=== PATIENT | male | born 1970 | race Asian ===

== ENCOUNTER 2020-11-18 08:31 | Outpatient (REF) | payer OTHER, SELFPAY ==
--- NOTE | ~2020-11-18 | XR_ITS ---
EXAMINATION: XR CHEST CLINICAL INFORMATION: Left rib pain COMPARISON: None TECHNIQUE: 2 views of the chest were obtained. FINDINGS: No significant abnormality is noted involving the heart, lungs, mediastinum, bony thorax or soft tissues. XR/XR chest 2V IMPRESSION: Unremarkable examination.
[2020-11-18 09:10] LABS: MANUAL DIFF FLAG NO
[2020-11-18 09:28] LABS: Basophils Percent Auto 0.2 % (0-2); Eosinophils Absolute Auto 0.3 X10*3/uL (0.0-0.4); Eosinophils Percent Auto 4.5 % (0-4); Hematocrit 47.1 % (42-52); Hemoglobin 15.5 g/dl (14.0-18.0); Imm Gran Abs Auto 0.01 X10*3/uL (0.00-0.03); Imm Gran Pct Auto 0.2 % (0.0-0.4); Lymphocytes Absolute Auto 2.2 X10*3/uL (1.2-4.9); Lymphocytes Percent Auto 39.5 % (20-40); Mean Corpuscular HGB Conc 32.9 g/dl (31.0-36.0); Mean Corpuscular Hemoglobin 29.8 pg (27.0-33.0); Mean Corpuscular Volume 90.4 fL (80-98); Mean Platelet Volume 9.7 fL (9.4-12.4); Monocytes Absolute Auto 0.5 X10*3/uL (0.1-1.2); Monocytes Percent Auto 8.3 % (2-11); Neutrophils Absolute Auto 2.6 X10*3/uL (2.0-8.3); Neutrophils Percent Auto 47.3 % (45-73); Platelet Count 213 X10*3/uL (160-400); Red Blood Count 5.21 X10*6/uL (4.60-5.80); White Blood Count 5.6 X10*3/uL (4.8-10.8)
[2020-11-18 09:50] LABS: Glucose Urine UA NEG (NEG); Leukocyte Esterase Urine NEG (NEG); Nitrite Urine NEG (NEG); PH 5.5 (5.0-8.0); Specific Gravity - Urine >= 1.030 (1.005-1.025); Urine Blood 1+ (NEG); Urine Ketones NEG (NEG); Urine Protein NEG (NEG-TRACE)
[2020-11-18 09:59] LABS: Appearance Urine CLEAR; Color Urine YELLOW
[2020-11-18 10:18] LABS: Alanine Aminotransferase 46 U/L (0-40); Albumin Level 4.4 g/dL (3.5-5.0); Alkaline Phosphatase 62 U/L (39-117); Anion Gap 11 (12-20); Aspartate Amino Transferase 37 U/L (5-37); Bilirubin Total 0.9 mg/dL (0.0-1.0); Blood Urea Nitrogen 15 mg/dL (9-16); C Reactive Protein 0.15 mg/dL (< or = 0.50); Calcium 8.9 mg/dL (8.4-10.2); Carbon Dioxide 28 mmol/L (22-29); Chloride 107 mmol/L (96-108); Cholesterol 220 mg/dL; Estimated Glomerular Filt Rate > 60; Glucose Fasting 122 mg/dL (60-99); HDL Cholesterol 47 mg/dL; LDL Cholesterol Calculated 157 mg/dl; Potassium 4.1 mmol/L (3.3-5.1); Sodium 142 mmol/L (135-145); Total Protein 7.3 g/dL (6.5-8.0); Triglycerides 81 mg/dL
[2020-11-18 11:57] LABS: Mucus Urine 1+ /LPF; RBC Urine 0-2 /HPF (0); Squamous Epithelial Cell Urine TRACE /LPF; WBC Urine 0-2 /HPF (0-4)
[2020-11-19 12:28] LABS: Transglutaminase Ab IgG 4 U/mL
[2020-11-19 14:27] LABS: Gliadin Deamidated IgA Ab 6 Units; Gliadin Deamidated IgG Ab 1 Units
== END 2020-11-18 08:32 | disposition home or self-care (01) ==
LOC: HO.LAB 08:31
PROVIDERS: PCP Internal Medicine; Visit Provider Internal Medicine
DX: Z00.00 Encounter for general adult medical examination without abnormal findings (principal); R07.81 Pleurodynia; R19.7 Diarrhea, unspecified
CPT/HCPCS: 36415; 71046; 80053; 80061; 81001; 83516; 85025; 86140

== ENCOUNTER 2021-01-19 08:51 | Day surgery (SDC) | payer OTHER, SELFPAY ==
--- NOTE | 2021-01-18 12:40 | HO.ANESPROP2 ---
Documented by User: Juana Young 01/18/21 12:42 HPI - Anesthesia Eval Consult details Narrative: 50yo M for Colonoscopy [facility] Past Medical History Medical History Elevated cholesterol Social History Social History Smoking Status: Never smoker Use of substances other than those prescribed or required for medical reasons: No Have you been hit, kicked, punched, or otherwise hurt by someone within the past year? If so, by whom?: No Advance Directives: No Advance Directives Information Provided: Yes Meds Allergies Allergy/AdvReac Type Severity Reaction Status Date / Time No Known Allergies Allergy Verified 01/18/21 12:42 Exam Exam Date and Time: January 18, 2021 1240 Pertinent Lab Results Pertinent Lab Results: Laboratory Tests 11/18/20 11/18/20 08:50 08:50 WBC 5.6 Hgb 15.5 Hct 47.1 Plt Count 213 Sodium 142 Potassium 4.1 Chloride 107 Carbon Dioxide 28 BUN 15 Creatinine 0.90 Assessment and Plan Assessment Anesthesia Assessment: Chart Reviewed Documented by User: James Hutchinson 01/19/21 10:58 [facility] Past Medical History Medical History Elevated cholesterol Social History Social History Smoking Status: Never smoker Use of substances other than those prescribed or required for medical reasons: No Have you been hit, kicked, punched, or otherwise hurt by someone within the past year? If so, by whom?: No Advance Directives: No Advance Directives Information Provided: Yes Meds Allergies Allergy/AdvReac Type Severity Reaction Status Date / Time No Known Allergies Allergy Verified 01/18/21 12:42 Exam Airway Mallampati Class: II TM Dist: >3cm Neck ROM: Full Loose/Missing/Broken Teeth: No Heart: rrr+s1s2 Lungs: cta b/l Assessment and Plan Assessment Anesthesia Assessment: Anesthesia Plan Discussed, PAT Visit and Chart Reviewed Final Anesthetic Review NPO: Yes ASA Class: II Final Preanesthetic Review: No Changes in Pt Med Stat, Meds/Allgs Chart Reviewed, Consent Obtained/Reviewed and Anes Risks/Benef Reviewed Patient Risk: Low Procedure Risk: Low Assessment/Block/Sedation in SS: Assess/Block/Sedation-SS Anesthetic Plan Anesthetic Plan: MAC: and Agree w/ Assess. and Plan Disposition: Standard PACU
[2021-01-19 10:13] VITALS: BP 131/81; PULSE 62; RESP 18; TEMP 36.4; O2SAT 98; BMI 29.0
[2021-01-19] MEDS: Lactated Ringers 1,000 ML 100 ML IVCONT (10:37)
--- NOTE | 2021-01-19 11:45 | MHC.SHP ---
Pre-Procedural Eval Section A The patient is an INPATIENT: No Changes since office visit: No Cold of Flu in the past 2 weeks, No New Medical Problems, No Changes in Medication and No Patient answered all questions The History & Physical has been completed within 30 days and I have reviewed it.: Yes Section B Chief Complaint: screening Allergies: Allergies Allergy/AdvReac Type Severity Reaction Status Date / Time No Known Allergies Allergy Verified 01/18/21 12:42 Plan I have reviewed the history and physical and performed a pertinent physical examination on my patient. No changes have occurred unless specified.
[2021-01-19 13:10] VITALS: BP 99/62; PULSE 62; RESP 16; TEMP 36.9; O2SAT 98
--- NOTE | 2021-01-19 13:12 | PM.OP ---
Brief Operative Note Date of Service: 01/19/21 Pre-op diagnosis: screening Post-op diagnosis: same (colon polyps) Procedure: colonoscopy Surgeon: Tommie Gupta Anesthesia: MAC Estimated blood loss (mL): 5 Pathology: other (multiple polyps, sigmoid biopsies) Condition: stable Disposition: PACU
[2021-01-19 13:25] VITALS: BP 94/57; PULSE 57; RESP 16; O2SAT 96
[2021-01-19 13:40] VITALS: BP 93/53; PULSE 60; RESP 16; O2SAT 95
[2021-01-19 13:48] VITALS: BP 109/76
--- NOTE | 2021-01-19 14:07 | OP_ITS ---
SURGEON: Tommie Gupta MD INDICATIONS: Change in bowel habits and colon cancer screening. PREOPERATIVE DIAGNOSIS: POSTOPERATIVE DIAGNOSIS: PROCEDURE PERFORMED: Colonoscopy to the terminal ileum with snare polypectomy, biopsy and cauterization of colon polyps. ESTIMATED BLOOD LOSS: COMPLICATIONS: ANESTHESIA: ASSISTANTS: SPECIMENS: MEDICATIONS: Monitored anesthesia care. DESCRIPTION OF PROCEDURE: History and physical performed. The risks and benefits of the procedure were explained to the patient. Informed consent was obtained. The patient was placed in the left lateral decubitus position. A digital rectal exam was performed and was found to be normal. The Olympus pediatric video colonoscope was introduced into the rectum and advanced to the cecum. The cecum was identified by transillumination, palpation, and identification of ileocecal valve. Examination was performed and the scope was removed. He tolerated the procedure well and was taken to recovery area in stable condition. FINDINGS: The terminal ileum was normal. There were multiple colonic polyps present, mainly concentrated in the cecum, right colon and transverse colon. These were so many that they could not be counted. The polyps were removed with a combination of snare polypectomy, biopsy and cautery. The largest polyps measured approximately 10 to 20 mm and were removed with a Tejada Net, which required multiple re-insertions and removals of the colonoscope. This made the procedure extended and difficult. In addition to the polyps grouped by their location in the cecum, right colon, and transverse colon, there was a polyp at 30 cm, which was sent separately and sigmoid biopsies were obtained randomly because of the patient's change in bowel habits. Retroflexed examination showed small internal hemorrhoids. The quality of the prep was good. IMPRESSION: 1. Multiple colonic polyps as above. 2. Extended/difficult procedure. RECOMMENDATIONS: 1. Follow up the biopsy results. 2. Consider repeat colonoscopy in 6 to 12 months as some of the polyps were large to ensure complete resection. MD ROSAMARIA Monique/BERNARDOL / [id number]
== END 2021-01-19 14:20 | disposition home or self-care (01) ==
PROVIDERS: PCP Internal Medicine; Visit Provider Internal Medicine Gastroenterology
PROC: 0DJD8ZZ Inspection of Lower Intestinal Tract, Via Natural or Artificial Opening Endoscopic (ICD-10-PCS; CPT 45378; principal; 2021-01-19 11:00)
DX: Z12.11 Encounter for screening for malignant neoplasm of colon (principal); R19.4 Change in bowel habit; D12.0 Benign neoplasm of cecum; D12.2 Benign neoplasm of ascending colon; D12.3 Benign neoplasm of transverse colon; D12.5 Benign neoplasm of sigmoid colon; K64.8 Other hemorrhoids
CPT/HCPCS: 45385; 45380; 45384; 88305

== ENCOUNTER 2021-02-19 14:07 | Outpatient (REF) | payer OTHER, SELFPAY ==
[2021-02-19 14:44] LABS: Estimated Average Glucose 160 mg/dL; Hemoglobin A1c % 7.2 %
[2021-02-19 15:04] LABS: Anion Gap 11 (12-20); Blood Urea Nitrogen 17 mg/dL (9-16); Calcium 9.3 mg/dL (8.4-10.2); Carbon Dioxide 28 mmol/L (22-29); Chloride 103 mmol/L (96-108); Estimated Glomerular Filt Rate > 60; Glucose Random 96 mg/dL (60-115); Potassium 4.1 mmol/L (3.3-5.1); Sodium 138 mmol/L (135-145)
== END 2021-02-19 14:08 | disposition home or self-care (01) ==
LOC: HO.LAB 14:07
PROVIDERS: PCP Internal Medicine; Visit Provider Internal Medicine
DX: R73.03 Prediabetes (principal); E78.00 Pure hypercholesterolemia, unspecified
CPT/HCPCS: 36415; 80048; 83036

== ENCOUNTER → 2021-06-28 13:25 | Outpatient (REF) | payer OTHER, SELFPAY | LOC: HO.SL 13:25 | PROVIDERS: PCP Internal Medicine; Visit Provider Internal Medicine | DX: R06.83 Snoring (principal) | CPT/HCPCS: 95806 ==

== ENCOUNTER 2021-07-16 07:35 | Day surgery (SDC) | payer OTHER, SELFPAY ==
--- NOTE | 2021-07-15 12:43 | HO.ANESPROP2 ---
Documented by User: Juana Young NP 07/15/21 12:44 HPI - Anesthesia Eval Consult details Narrative: 50yo M for Colonoscopy [facility] Past Medical History Medical History Elevated cholesterol Surgical History Surgical History (Updated 07/09/21 @ 14:35 by Talia Cochran, RN) Hx of colonoscopy Social History Social History Patient Tobacco Use Status: Never used Tobacco Use of substances other than those prescribed or required for medical reasons: No Are you DNR?: No Advance Directives: No Advance Directives Information Provided: Yes Recently lost weight without trying: No Nutrition Risks: No Nutritional Risk Meds Allergies Allergy/AdvReac Type Severity Reaction Status Date / Time No Known Allergies Allergy Verified 01/18/21 12:42 Home Medications Medication Instructions Recorded Confirmed Last Taken Type No Known Home Meds 07/09/21 07/09/21 Unknown History Exam Exam Date and Time: July 15, 2021 124 Pertinent Lab Results Pertinent Lab Results: Laboratory Tests 11/18/20 02/19/21 08:50 14:27 WBC 5.6 Hgb 15.5 Hct 47.1 Plt Count 213 Sodium 138 Potassium 4.1 Chloride 103 Carbon Dioxide 28 BUN 17 H Creatinine 0.84 Assessment and Plan Assessment Anesthesia Assessment: Chart Reviewed Documented by User: James Hutchinson MD 07/16/21 07:49 [facility] Past Medical History Medical History Elevated cholesterol Family History Family history of problems with anesthesia: No Surgical History Surgical History (Updated 07/09/21 @ 14:35 by Talia Cochran, RN) Hx of colonoscopy History of Problems with Anesthesia: No Social History Social History Patient Tobacco Use Status: Never used Tobacco Use of substances other than those prescribed or required for medical reasons: No Are you DNR?: No Advance Directives: No Advance Directives Information Provided: Yes Recently lost weight without trying: No Nutrition Risks: No Nutritional Risk Meds Allergies Allergy/AdvReac Type Severity Reaction Status Date / Time No Known Allergies Allergy Verified 01/18/21 12:42 Home Medications Medication Instructions Recorded Confirmed Last Taken Type No Known Home Meds 07/09/21 07/09/21 Unknown History Exam Airway Mallampati Class: II TM Dist: >3cm Neck ROM: Full Loose/Missing/Broken Teeth: No Heart: rrr+s1s2 Lungs: cta b/l Assessment and Plan Assessment Anesthesia Assessment: Anesthesia Plan Discussed Final Anesthetic Review Family History of Problems with Anesthesia: No History of Problems with Anesthesia: No NPO: Yes ASA Class: II Final Preanesthetic Review: No Changes in Pt Med Stat, Meds/Allgs Chart Reviewed, Consent Obtained/Reviewed and Anes Risks/Benef Reviewed Patient Risk: Intermediate Procedure Risk: Low Assessment/Block/Sedation in SS: Assess/Block/Sedation-SS Anesthetic Plan Anesthetic Plan: MAC: and Agree w/ Assess. and Plan Disposition: Standard PACU
[2021-07-16 07:45] VITALS: BMI 32.1
[2021-07-16 07:57] VITALS: BP 128/75; PULSE 70; RESP 16; TEMP 36.4; O2SAT 96
[2021-07-16] MEDS: Lactated Ringers 1,000 ML 100 ML IVCONT (08:08)
--- NOTE | 2021-07-16 08:45 | MHC.SHP ---
Pre-Procedural Eval Section A Date of Service: 07/16/21 Section B Chief Complaint: hx of colonic polyps Details of Present Illness: see H&P no changes Relevant Family History (Specify if Yes): No Relevant Social History: None Present Medications: see Short Stay Collaborative assessment Medical History: No relevant PMH History of Previous Operations: No relevant previous surgery Allergies: Allergies Allergy/AdvReac Type Severity Reaction Status Date / Time No Known Allergies Allergy Verified 01/18/21 12:42 Review of Systems Sugical H&P ROS: Negative: Constitution, Cardiovascular, Respiratory, Neurological, Psychiatric, Hem-Onc, Allergic/Immunologic, Gastrointestinal, Genitourinary, Musculoskeletal, Integumentary, Endocrine and Eyes/Ears/Nose/Throat Exam Surgical H&P Exam: Normal: HEENT, Normal: Heart, Normal: Lungs, Normal: Extremities, Normal: Abdomen, Normal: Skin and Normal: Neurological Plan I have reviewed the history and physical and performed a pertinent physical examination on my patient. No changes have occurred unless specified.
[2021-07-16 09:28] VITALS: BP 97/73; PULSE 96; RESP 16; TEMP 36.1; O2SAT 96
--- NOTE | 2021-07-16 09:32 | PM.OP ---
Brief Operative Note Date of Service: 07/16/21 Pre-op diagnosis: screening Post-op diagnosis: same (colon polyps) Procedure: colonosocpy Surgeon: Tommie Gupta Anesthesia: MAC Was an Oral Therapist used for this Procedure?: No Estimated blood loss (mL): 5 Pathology: other (multiple polyps) Condition: stable Disposition: PACU
[2021-07-16 09:45] VITALS: BP 97/61; PULSE 69; RESP 16; O2SAT 95
--- NOTE | 2021-07-16 09:46 | OP_ITS ---
SURGEON: Tommie Gupta MD INDICATIONS: Colon cancer screening. PREOPERATIVE DIAGNOSIS: POSTOPERATIVE DIAGNOSIS: PROCEDURE PERFORMED: Colonoscopy to the terminal ileum with snare polypectomy, biopsy and cauterization of colon polyps. ESTIMATED BLOOD LOSS: COMPLICATIONS: ANESTHESIA: ASSISTANTS: SPECIMENS: MEDICATIONS: Monitored anesthesia care. DESCRIPTION OF PROCEDURE: History and physical performed. The risks and benefits of the procedure were explained to the patient. Informed consent was obtained. The patient was placed in the left lateral decubitus position. A digital rectal exam was performed and was found to be normal. The Olympus pediatric video colonoscope was introduced into the rectum and advanced to the cecum without difficulty. The cecum was identified by transillumination, palpation, and identification of ileocecal valve. Examination was performed and the scope was removed. He tolerated the procedure well and was taken to recovery area in stable condition. FINDINGS: The terminal ileum was normal. The visualized colonic mucosa was within normal limits without evidence of masses or ulcers. The quality of the prep was good. Multiple colonic polyps were identified and removed with a snare. Biopsy forceps and one was cauterized. Two polyps were located at 70 cm. Two polyps were located at 60 cm, one was cauterized and the other was snared. At 50 cm, were 3 polyps that were snared and the 4th polyp that was removed with biopsy forceps. Retroflexed examination was normal. IMPRESSION: Colon polyps. RECOMMENDATION: Follow up the biopsy results. MD ROSAMARIA Monique/KWASI / [id number]
[2021-07-16 10:00] VITALS: BP 109/78; PULSE 63; RESP 16; TEMP 36.1; O2SAT 96
== END 2021-07-16 12:00 | disposition home or self-care (01) ==
PROVIDERS: PCP Internal Medicine; Visit Provider Internal Medicine Gastroenterology
PROC: 0DJD8ZZ Inspection of Lower Intestinal Tract, Via Natural or Artificial Opening Endoscopic (ICD-10-PCS; CPT 45378; principal; 2021-07-16 08:40)
DX: D12.4 Benign neoplasm of descending colon (principal); D12.5 Benign neoplasm of sigmoid colon; E78.00 Pure hypercholesterolemia, unspecified; Z86.010 Personal history of colon polyps
CPT/HCPCS: 45385; 45384; 45380; 88305

== ENCOUNTER 2023-12-30 10:39 | Outpatient (REF) | payer OTHER, SELFPAY ==
[2023-12-30 10:50] LABS: MANUAL DIFF FLAG NO
[2023-12-30 11:24] LABS: Basophils Percent Auto 0.3 % (0-2); Eosinophils Absolute Auto 0.2 X10*3/uL (0.0-0.4); Eosinophils Percent Auto 3.2 % (0-4); Hematocrit 48.4 % (42.0-52.0); Hemoglobin 16.4 g/dl (14.0-18.0); Imm Gran Abs Auto 0.03 X10*3/uL (0.00-0.03); Imm Gran Pct Auto 0.4 % (0.0-0.4); Lymphocytes Absolute Auto 2.2 X10*3/uL (1.2-4.9); Lymphocytes Percent Auto 31.2 % (20-40); Mean Corpuscular HGB Conc 33.9 g/dl (31.0-36.0); Mean Corpuscular Volume 88.5 fL (80.0-98.0); Mean Platelet Volume 9.5 fL (9.4-12.4); Monocytes Absolute Auto 0.6 X10*3/uL (0.1-1.2); Monocytes Percent Auto 8.2 % (2-11); Neutrophils Percent Auto 56.7 % (45-73); Platelet Count 209 X10*3/uL (160-400); Red Blood Count 5.47 X10*6/uL (4.60-5.80); Red Cell Distribution Width 12.6 % (11.0-16.0); White Blood Count 7.1 X10*3/uL (4.8-10.8)
[2023-12-30 11:33] LABS: Estimated Average Glucose 237 mg/dL; Hemoglobin A1c % 9.9 % (<6.0)
[2023-12-30 11:50] LABS: Alanine Aminotransferase 45 U/L (0-40); Albumin Level 4.5 g/dL (3.5-5.0); Alkaline Phosphatase 63 U/L (39-117); Anion Gap 14 (12-20); Aspartate Amino Transferase 30 U/L (5-37); Bilirubin Total 0.6 mg/dL (0.0-1.0); Blood Urea Nitrogen 12 mg/dL (9-16); Calcium 9.9 mg/dL (8.4-10.2); Carbon Dioxide 29 mmol/L (22-29); Chloride 103 mmol/L (96-108); Cholesterol 235 mg/dL (<200); Estimated Glomerular Filt Rate > 60; Glucose Fasting 182 mg/dL (60-99); HDL Cholesterol 55 mg/dL (>40); LDL Cholesterol Calculated 157 mg/dL (<100); Potassium 3.8 mmol/L (3.3-5.1); Sodium 142 mmol/L (135-145); Total Protein 8.2 g/dL (6.5-8.0); Triglycerides 115 mg/dL (<150)
== END 2023-12-30 10:40 | disposition home or self-care (01) ==
LOC: HO.LAB 10:39
PROVIDERS: PCP Internal Medicine; Visit Provider Internal Medicine
DX: E78.00 Pure hypercholesterolemia, unspecified (principal); R73.03 Prediabetes; N40.0 Benign prostatic hyperplasia without lower urinary tract symptoms
CPT/HCPCS: 36415; 80053; 80061; 83036; 85025

== ENCOUNTER 2024-04-19 12:02 | Outpatient (REF) | payer OTHER, SELFPAY ==
[2024-04-19 13:58] LABS: Anion Gap 16 (12-20); Blood Urea Nitrogen 15 mg/dL (9-16); Calcium 9.2 mg/dL (8.4-10.2); Carbon Dioxide 26 mmol/L (22-29); Chloride 103 mmol/L (96-108); Estimated Glomerular Filt Rate > 60; Glucose Random 105 mg/dL (60-115); Sodium 141 mmol/L (135-145)
[2024-04-19 14:19] LABS: Estimated Average Glucose 174 mg/dL; Hemoglobin A1c % 7.7 % (<6.0)
== END 2024-04-19 12:03 | disposition home or self-care (01) ==
LOC: HO.10HDL 12:02
PROVIDERS: Visit Provider Internal Medicine
DX: E11.9 Type 2 diabetes mellitus without complications (principal); E78.00 Pure hypercholesterolemia, unspecified
CPT/HCPCS: 36415; 80048; 83036

== ENCOUNTER 2024-06-20 12:22 | Outpatient (REF) | payer OTHER, SELFPAY ==
[2024-06-20 13:14] LABS: MANUAL DIFF FLAG NO
[2024-06-20 13:46] LABS: Estimated Average Glucose 146 mg/dL; Hemoglobin A1c % 6.7 % (<6.0)
[2024-06-20 13:59] LABS: Alanine Aminotransferase 64 U/L (0-40); Albumin Level 4.4 g/dL (3.5-5.0); Alkaline Phosphatase 51 U/L (39-117); Anion Gap 13 (12-20); Aspartate Amino Transferase 48 U/L (5-37); Bilirubin Total 0.4 mg/dL (0.0-1.0); Blood Urea Nitrogen 11 mg/dL (9-16); C Reactive Protein 0.19 mg/dL (< or = 0.50); Carbon Dioxide 27 mmol/L (22-29); Chloride 105 mmol/L (96-108); Estimated Glomerular Filt Rate > 60; Glucose Random 73 mg/dL (60-115); Lactate Dehydrogenase 215 U/L (118-273); Sodium 141 mmol/L (135-145); Total Protein 8.2 g/dL (6.5-8.0)
[2024-06-20 14:00] LABS: Basophils Percent Auto 0.1 % (0-2); Eosinophils Absolute Auto 0.3 X10*3/uL (0.0-0.4); Eosinophils Percent Auto 3.6 % (0-4); Hematocrit 47.7 % (42.0-52.0); Hemoglobin 16.3 g/dl (14.0-18.0); Imm Gran Abs Auto 0.04 X10*3/uL (0.00-0.03); Imm Gran Pct Auto 0.5 % (0.0-0.4); Lymphocytes Absolute Auto 3.2 X10*3/uL (1.2-4.9); Lymphocytes Percent Auto 42.8 % (20-40); Mean Corpuscular HGB Conc 34.2 g/dl (31.0-36.0); Mean Corpuscular Hemoglobin 30.2 pg (27.0-33.0); Mean Corpuscular Volume 88.5 fL (80.0-98.0); Mean Platelet Volume 8.7 fL (9.4-12.4); Monocytes Absolute Auto 0.5 X10*3/uL (0.1-1.2); Monocytes Percent Auto 7.2 % (2-11); Neutrophils Absolute Auto 3.4 x10*3/uL (2.0-8.3); Neutrophils Percent Auto 45.8 % (45-73); Platelet Count 312 X10*3/uL (160-400); Red Blood Count 5.39 X10*6/uL (4.60-5.80); Red Cell Distribution Width 13.2 % (11.0-16.0); White Blood Count 7.5 X10*3/uL (4.8-10.8)
== END 2024-06-20 12:23 | disposition home or self-care (01) ==
LOC: HO.10HDL 12:22
PROVIDERS: Visit Provider Internal Medicine
DX: E11.9 Type 2 diabetes mellitus without complications (principal)
CPT/HCPCS: 36415; 80053; 82550; 83036; 83615; 85025; 86140

== ENCOUNTER 2025-04-15 09:45 | Outpatient (AMB) | payer OTHER, SELFPAY ==
--- NOTE | 2025-04-15 09:54 | MHC.PC.OV ---
Vital Signs 04/15/25 09:57 Weight 84.822 kg BP 118/78 Blood Pressure Location Lt brachial Position Sitting Respiration 14 Pulse 62 Pulse Source Pulse Oximeter Temp 97.9 F Pulse Oximetry (%) 97 Oxygen Delivery Method Room Air Intake Visit Reasons: routine [employer] Supervisor Required: No Accompanied by: Self / Same As Patient Allergies No Known Allergies Allergy (Verified 04/15/25 09:55) HPI HPI Comments History of Present Illness Details 54-year-old male with history of type 2 diabetes, hyperlipidemia presents to the office today for management of chronic conditions and to establish care. Type 2 diabetes-last hemoglobin A1c 6.7%. Compliant with metformin and glipizide. Eye exam UTD. Not checking sugars. Hyperlipidemia-not on statin. Last LDL 157 Concerns: Pain in all fingers every morning, difficult close fist. Reports clicking when trying to close fist. Improves as day goes on. 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 Pain with movement. Health maintenance: Last colonoscopy 2020, 5 year follow-up advised due to tubular adenoma. Dr. Gupta Due for screening PSA ROS: General: No fevers, malaise, unintentional weight loss HEENT: No blurred vision, diplopia. No sore throat, nasal congestion, rhinorrhea, sinus pain, ear pain Cardiovascular: No chest pain, palpitations, or leg edema Respiratory: No shortness of breath, wheezing, cough GI: No abdominal pain, nausea, vomiting, diarrhea, constipation, melena, hematochezia : No dysuria, hematuria, increased urinary frequency, decreased urinary output MSK: No myalgia, back pain Neuro: No headaches, weakness, paresthesias Skin: No rashes or lesions EXAM: Constitutional - Awake and Alert, No apparent distress Eyes - PERRL Cardiovascular - S1S2, RRR, No edema Respiratory - Normal lung expansion, Normal respiratory effort, No respiratory distress, CTA bilaterally Extremities - no calf tenderness bilaterally, no swelling Skin - Warm/Dry Neurological - Alert & oriented x3 Psychological - Appropriate affect PFSH Medical History (Updated 04/15/25 @ 10:07 by GREGG Wade) Nephrolithiasis HLD (hyperlipidemia) Type 2 diabetes mellitus Elevated cholesterol Surgical History (Updated 04/14/25 @ 15:43 by Francine Solares) Hx of colonoscopy (~07/16/21) Social History Patient Tobacco Use Status: Never used Tobacco Questionnaire PHQ-9 Over the last 2 weeks, how often have you been bothered by any of the following problems? 1. Little interest or pleasure in doing things: nearly every day 2. Feeling down, depressed, or hopeless: not at all 3. Trouble falling or staying asleep, or sleeping too much: not at all 4. Feeling tired or having little energy: several days 5. Poor appetite or overeating: not at all 6. Feeling bad about yourself - or that you are a failure or have let yourself or your family down: nearly every day 7. Trouble concentrating on things, such as reading the newspaper or watching television: nearly every day 8. Moving or speaking so slowly that other people could have noticed. Or the opposite - being so fidgety or restless that you have been moving around a lot more than usual: not at all 9. Thoughts that you would be better off or of hurting yourself in some way: not at all Total score: 10 Depression Screening Interpretation: Positive Depression Screening Done: Yes 77683 - PHQ-9 Billing: Yes Source: Developed by Drs. Juan Nagy, Lizette Bain, Jose Grady and colleagues, with an educational acosta from [employer] Thrive Questionnaire Date Thrive assessed: 04/15/25 I am a: Patient What is your living situation today?: I have a steady place to live Within the past 12 months, did the food you bought not last and you didn't have the money to get more?: Never true Within the past 12 months, did you worry whether your food would run out before you got money to buy more?: Never true Do you have trouble paying for medicines?: No Do you have trouble getting transportation to medical appointments?: No Do you have trouble paying your heating and electricity bill?: No Do you have trouble taking care of your child, family member or friend?: No Do you have trouble with day-to-day activities such as bathing, preparing meals, shopping, managing finances, etc.?: No Are you currently unemployed and looking for a job?: No Are you interested in more education?: No THRIVE Score: 0 MAURI-7 AMB Questionnaire MAURI-7 Date MAURI - 7 assessed: 04/15/25 Feeling nervous, anxious, or on edge: 0 = Not at all Not being able to stop or control worryin = Not at all Worrying too much about different things: 1 = Several days Trouble relaxin = Not at all Being so restless that it is hard to sit still: 0 = Not at all Becoming easily annoyed or irritable: 0 = Not at all Feeling afraid as if something awful might happen: 1 = Several days Total MAURI-7 score (0-4 normal; 5-9 mild; 10-14 moderate; 15-21 severe): 2 Source: Developed by Drs. Juan Nagy, Lizette Bain, Jose Grady and colleagues, with an educational acosta from [employer] MAURI-7 Assessment Billing MAURI-7 Assessment Tool: MAURI-7 Assessment 77432 Physical exam (Primary Care) Vital Signs: Last Vital Signs Temp 97.9 F 04/15/25 09:57 Pulse 62 04/15/25 09:57 Resp 14 04/15/25 09:57 BP 118/78 04/15/25 09:57 Pulse Ox 97 04/15/25 09:57 Oxygen Delivery Method Room Air 04/15/25 09:57 Tobacco/Smoking Status: Tobacco use Status Patient Tobacco Use Status Never used Tobacco 04/15/25 10:01 Depression Screening Interpretation: Positive Coding Level of Care Code New Pt Level 4 (32786) Complex EM visit Add On G2211 Diagnoses Type 2 diabetes mellitus E11.9 HLD (hyperlipidemia) E78.5 Additional Codes PHQ-9 - 39220 - PHQ-9 Billing: Yes ([id number]) MAURI-7 Assessment Billing - MAURI-7 Assessment Tool: MAURI-7 Assessment [id number] ([id number]) Assessment & Plan Assessment & Plan (1) Type 2 diabetes mellitus: Code(s): E11.9 - Type 2 diabetes mellitus without complications Category: Medical Plan: Hemoglobin A1c ordered and microalbuminuria screen. Continue glipizide 5 mg twice daily and metformin 500 mg twice daily. Continue diabetic diet as well as annual eye exams and foot exams. (2) HLD (hyperlipidemia): Code(s): E78.5 - Hyperlipidemia, unspecified Category: Medical Plan: Lipid panel ordered. Does discussed the importance of cholesterol management with history of type 2 diabetes. Will calculate ASCVD risk score and recommend statin as indicated Plan Follow-up in the office in 4 months. Labs were completed following visit today. PHQ-9 score positive with score of 10 and mauri 7 score negative. Not interested in therapy at this time Orders: Orders Basic Metabolic Panel Today E11.9 - Type 2 diabetes mellitus without complications, E78.5 - Hyperlipidemia, unspecified Lipid Panel Today E11.9 - Type 2 diabetes mellitus without complications, E78.5 - Hyperlipidemia, unspecified Liver Panel Today E11.9 - Type 2 diabetes mellitus without complications, E78.5 - Hyperlipidemia, unspecified Hemoglobin A1c Today E11.9 - Type 2 diabetes mellitus without complications, E78.5 - Hyperlipidemia, unspecified Prostate Specific Antigen Today E11.9 - Type 2 diabetes mellitus without complications, E78.5 - Hyperlipidemia, unspecified
[2025-04-15 09:57] VITALS: BP 118/78; PULSE 62; RESP 14; TEMP 36.6; O2SAT 97
--- OUTSIDE RECORDS SUMMARY | 2025-04-15 10:21 | XMS_ITS | Patient Health Record ---
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 the day before the procedure for 1 day 01/13/2021 Active Immunizations Vaccine Route Administration Date Status Comme nts Influenza Unknown 01/13/2021 Refused Social History Tobacco Use: Social History Observation Description Date Details (start date - stop date) Never Smoker NA - NA Tobacco Use/Smoking Question Answer Notes Patient is a nonsmoker Alcohol Screen Question Answer Notes Did you have a drink contain ing alcohol in the past year? Yes How often did you have a dri nk containing alcohol in the past year? Monthly or less (1 point) How often did you have 6 or more drinks on one occasion in the past year? 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
== END 2025-04-15 10:24 | disposition home or self-care (01) ==
LOC: HO.HMCHD 09:46
PROVIDERS: PCP Physician Assistant; Visit Provider Physician Assistant
DX: E11.9 Type 2 diabetes mellitus without complications (principal); E78.5 Hyperlipidemia, unspecified

== ENCOUNTER → 2025-04-15 09:45 | Outpatient (BNVA) | payer OTHER, SELFPAY | PROVIDERS: PCP Internal Medicine; Visit Provider Physician Assistant | DX: Z76.89 Persons encountering health services in other specified circumstances (principal); E11.9 Type 2 diabetes mellitus without complications; E78.5 Hyperlipidemia, unspecified; Z79.84 Long term (current) use of oral hypoglycemic drugs; Z13.31 Encounter for screening for depression; Z13.30 Encounter for screening examination for mental health and behavioral disorders, unspecified | CPT/HCPCS: 96127 ==

== ENCOUNTER 2025-04-15 10:29 | Outpatient (REF) | payer OTHER, SELFPAY ==
[2025-04-15 14:17] LABS: Alanine Aminotransferase 70 U/L (0-40); Albumin Level 4.5 g/dL (3.5-5.0); Alkaline Phosphatase 47 U/L (39-117); Anion Gap 11 (12-20); Aspartate Amino Transferase 61 U/L (5-37); Blood Urea Nitrogen 12 mg/dL (9-16); Calcium 9.1 mg/dL (8.4-10.2); Carbon Dioxide 26 mmol/L (22-29); Chloride 108 mmol/L (96-108); Cholesterol 228 mg/dL (<200); Estimated Glomerular Filt Rate > 60; HDL Cholesterol 51 mg/dL (>40); Potassium 3.7 mmol/L (3.3-5.1); Sodium 141 mmol/L (135-145); Total Protein 7.4 g/dL (6.5-8.0); Triglycerides 110 mg/dL (<150)
[2025-04-15 14:18] LABS: Hemoglobin A1C 196.8142 umol/L; Total Hemoglobin (HGBA1C) 4016.3888 umol/L
[2025-04-15 14:36] LABS: Prostate Specific Antigen 1.02 ng/mL (<0.05-4.0)
== END 2025-04-15 10:30 | disposition home or self-care (01) ==
LOC: HO.10HDL 10:29
PROVIDERS: Visit Provider Physician Assistant
DX: Z12.5 Encounter for screening for malignant neoplasm of prostate (principal); E78.5 Hyperlipidemia, unspecified; E11.9 Type 2 diabetes mellitus without complications
CPT/HCPCS: 36415; 80048; 80061; 80076; 83036; 84153

== ENCOUNTER 2025-08-18 16:07 | Outpatient (AMB) | payer OTHER, SELFPAY ==
--- NOTE | 2025-08-18 16:08 | A.OFFPC_ITS ---
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: No Accompanied by: Self / Same As Patient Allergies No Known Allergies Allergy (Verified 08/18/25 16:08) Medication List - Last Reconciled 08/18/25 by GREGG Wade atorvastatin 40 mg PO BEDTIME glipizide 5 mg PO BID metformin 500 mg PO BID Tobacco use date assessed: 08/18/25 Dental Screening Dental Screen Date: 08/18/25 Did you have a dental visit in the last 12 months?: Yes Did you have a dental problem in the last 6 months where you did not have access to dental care?: No Was dental information given to patient?: Patient has dentist HPI HPI Comments History of Present Illness Details 54-year-old male with history of type 2 diabetes, hyperlipidemia presents to the office today for management of chronic conditions and to establish care. Type 2 diabetes-last hemoglobin A1c 6.7% this morning. Compliant with metformin and glipizide. Eye exam UTD- [facility] eye drLakeisha Not checking sugars. Hyperlipidemia-last LDL 157, was started on atorvastatin 40 mg subsequently Concerns: Dental extraction- now with pain in the extraction area and face with swollen node. No fevers, chills Health maintenance: Last colonoscopy 2020, 5 year follow-up advised due to tubular adenoma. Dr. Gupta ROS: General: No fevers, malaise, unintentional weight loss HEENT: No blurred vision, diplopia. No sore throat, nasal congestion, rhinorrhea, sinus pain, ear pain Cardiovascular: No chest pain, palpitations, or leg edema Respiratory: No shortness of breath, wheezing, cough GI: No abdominal pain, nausea, vomiting, diarrhea, constipation, melena, hematochezia : No dysuria, hematuria, increased urinary frequency, decreased urinary output MSK: No myalgia, back pain Neuro: No headaches, weakness, paresthesias Skin: No rashes or lesions EXAM: Constitutional - Awake and Alert, No apparent distress Eyes - PERRL Mouth- TTP over upper molar extration site. No fluctuance. TTP over R face. Swollen R tonsillar node Cardiovascular - S1S2, RRR, No edema Respiratory - Normal lung expansion, Normal respiratory effort, No respiratory distress, CTA bilaterally Extremities - no calf tenderness bilaterally, no swelling Skin - Warm/Dry Neurological - Alert & oriented x3 Psychological - Appropriate affect [facility] Medical History (Updated 08/18/25 @ 16:50 by GREGG Wade) Nephrolithiasis HLD (hyperlipidemia) Type 2 diabetes mellitus Elevated cholesterol Surgical History (Updated 04/14/25 @ 15:43 by Francine Solares) Hx of colonoscopy (~07/16/21) Social History Housing: House Patient Tobacco Use Status: Former Tobacco user Years Smoked: quit 30 years ago e-Cigarette/Vaping Use: Never Used service: No Current occupational status: employed Current occupation: [employer] Questionnaire Thrive Questionnaire Date Thrive assessed: 04/15/25 AUDIT C Alcohol Use Questionnaire (AUDIT-C) 1. How often do you have a drink containing alcohol?: Monthly or less 2. How many drinks containing alcohol do you have on a typical day when you are drinking?: 1 or 2 Total Score: 1 MAURI-7 AMB Questionnaire MAURI-7 Date MAURI - 7 assessed: 04/15/25 Source: Developed by Drs. Juan Nagy, Lizette Bain, Jose Grady and colleagues, with an educational acosta from [employer]. Physical exam (Primary Care) Vital Signs: Last Vital Signs Temp 97.5 F 08/18/25 16:14 Pulse 66 08/18/25 16:14 Resp 18 08/18/25 16:14 BP 124/74 08/18/25 16:14 Pulse Ox 96 08/18/25 16:14 Oxygen Delivery Method Room Air 08/18/25 16:14 BMI result Body Mass Index 29.0 Tobacco/Smoking Status: Tobacco use Status Tobacco use date assessed 08/18/25 08/18/25 16:09 Patient Tobacco Use Status Former Tobacco user 08/18/25 16:16 e-Cigarette/Vaping Use Never Used 08/18/25 16:16 Thrive Assessment: Date of Thrive Assessment Date Thrive assessed 04/15/25 08/18/25 16:09 Coding Level of Care Code Est Pt Level 4 (07964) Complex EM visit Add On G2211 Diagnoses Type 2 diabetes mellitus E11.9 HLD (hyperlipidemia) E78.5 Dental infection K04.7 Assessment & Plan Assessment & Plan (1) Type 2 diabetes mellitus: Code(s): E11.9 - Type 2 diabetes mellitus without complications Category: Medical Plan: Well-controlled. Discontinue glipizide do reduce the risk of hypoglycemia. Can continue metformin 500 mg twice daily (2) HLD (hyperlipidemia): Code(s): E78.5 - Hyperlipidemia, unspecified Category: Medical Plan: Lipid panel ordered. Continue atorvastatin and diet low in saturated fats and highly processed foods. (3) Dental infection: Code(s): K04.7 - Periapical abscess without sinus Category: Medical Plan: Augmentin prescribed x 7 days. Counselled on side effects. Advised to use ibuprofen and/or tylenol. Contact dentist for follow-up Plan Follow-up in the office in 4 months. Labs to be completed today. Medications: New amoxicillin-pot clavulanate 875-125 mg 1 tab PO BID 14 tabs 0RF
[2025-08-18 16:14] VITALS: BP 124/74; PULSE 66; RESP 18; TEMP 36.4; O2SAT 96; BMI 29.0
== END 2025-08-18 16:49 | disposition home or self-care (01) ==
PROVIDERS: PCP Physician Assistant; Visit Provider Physician Assistant
DX: E11.9 Type 2 diabetes mellitus without complications (principal); E78.5 Hyperlipidemia, unspecified; K04.7 Periapical abscess without sinus